=== PATIENT | male | born 1990 | race Caucasian/White ===

== ENCOUNTER 2019-05-17 12:35 | Observation (INO) | payer SELFPAY ==
--- NOTE | 2019-05-17 13:08 | ER Document Report ---
ED Medical Screen (RME) - General Stated Complaint: BLOOD SUGAR ISSUE Time Seen by Provider: 05/17/19 13:02 Primary Care Provider: BRENDA LANDRY MD [Primary Care Provider] - Follow up as needed Information source: Patient Notes: Patient presents with reported history of not feeling well. Patient also complains of skin infection to the left axillary area. Patient's mother checked his blood sugar as she is diabetic and found his sugar to be 596. Patient then drank a soda and his blood sugar was unable to be read at home. Patient without any previous history of diabetes. I have greeted and performed a rapid initial assessment of this patient. A comprehensive ED assessment and evaluation of the patient, analysis of test results and completion of the medical decision making process will be conducted by additional ED providers. - Related Data Allergies/Adverse Reactions: No Known Allergies Allergy (Verified 05/17/19 12:58) Physical Exam - Vital signs Vitals: Temp Pulse Resp BP Pulse Ox 98.5 F 117 H 16 176/99 H 96 05/17/19 12:39 05/17/19 12:39 05/17/19 12:39 05/17/19 12:39 05/17/19 12:39 - General Notes: Abscess to left axilla with large area of surrounding erythema Course - Vital Signs Vital signs: Temp Pulse Resp BP Pulse Ox 98.5 F 117 H 16 176/99 H 96 05/17/19 12:39 05/17/19 12:39 05/17/19 12:39 05/17/19 12:39 05/17/19 12:39 Doctor's Discharge - Discharge Referrals: BRENDA LANDRY MD [Primary Care Provider] - Follow up as needed
[2019-05-17] MEDS: NORMAL SALINE 1000 ML 1,000 ML IV ONE ×6 (13:10→19:10)
[2019-05-17 14:30] LABS: ABSOLUTE BASOPHILS # (AUTO) 0.1 10^3/uL (0.0-0.2); ABSOLUTE EOSINOPHILS # (AUTO) 0.1 10^3/uL (0.0-0.6); ABSOLUTE LYMPHOCYTES (AUTO) 1.9 10^3/uL (0.5-4.7); ABSOLUTE MONOCYTES (AUTO) 0.8 10^3/uL (0.1-1.4); ABSOLUTE NEUT (AUTO) 10.4 10^3/uL (1.7-8.2); BASOPHILS % (AUTO) 0.5 % (0-2); EOSINOPHILS % (AUTO) 0.8 % (0-6); HEMOGLOBIN 17.2 g/dL (13.5-17.0); LYMPHOCYTES % (AUTO) 14.6 % (13-45); MEAN CORPUSCULAR HEMOGLOBIN 32.1 pg (27.0-33.4); MEAN CORPUSCULAR HGB CONC 35.1 g/dL (32.0-36.0); MEAN CORPUSCULAR VOLUME 92 fl (80-97); MONOCYTES % (AUTO) 5.7 % (3-13); PLATELET COUNT 277 10^3/uL (150-450); RED BLOOD COUNT 5.35 10^6/uL (4.35-5.55); RED CELL DISTRIBUTION WIDTH 12.3 % (11.5-14.0); SEGMENTED NEUTROPHILS % (AUTO) 78.4 % (42-78); TOTAL CELLS COUNTED % (AUTO) 100 %; WHITE BLOOD COUNT 13.3 10^3/uL (4.0-10.5)
[2019-05-17 14:32] LABS: VENOUS BLOOD BASE EXCESS -2.3 mmol/L; VENOUS BLOOD HCO3 22.1 mmol/L (20-32); VENOUS BLOOD PCO2 37.5 mmHg (35-63); VENOUS BLOOD PH 7.39 (7.30-7.42)
[2019-05-17 14:46] LABS: ALBUMIN 4.4 g/dL (3.5-5.0); ALKALINE PHOSPHATASE 188 U/L (38-126); ANION GAP 16 (5-19); ASPARTATE AMINO TRANSFERASE 40 U/L (17-59); BILIRUBIN,DIRECT 0.4 mg/dL (0.0-0.4); BILIRUBIN,TOTAL 1.2 mg/dL (0.2-1.3); BLOOD UREA NITROGEN 7 mg/dL (7-20); CALCIUM 9.8 mg/dL (8.4-10.2); CARBON DIOXIDE 21 mmol/L (22-30); CHLORIDE 93 mmol/L (98-107); POTASSIUM 4.6 mmol/L (3.6-5.0); TOTAL PROTEIN 7.6 g/dL (6.3-8.2)
[2019-05-17 14:55] LABS: GLUCOSE 512 mg/dL (75-110)
[2019-05-17 16:09] LABS: APPEARANCE,URINE CLEAR; BILIRUBIN,URINE NEGATIVE (NEGATIVE); COLOR,URINE STRAW; GLUCOSE, URINE >=500 mg/dL (NEGATIVE); KETONES,URINE 20 mg/dL (NEGATIVE); LEUKOCYTE ESTERASE,URINE TRACE (NEGATIVE); NITRITE,URINE NEGATIVE (NEGATIVE); PROTEIN,URINE 30 mg/dL (NEGATIVE); URINE SPECIFIC GRAVITY 1.035; UROBILINOGEN,URINE NEGATIVE mg/dL (<2.0)
[2019-05-17] MEDS ORDERED: LIDOCAINE 1% INJ-PF (10 MG/ML) 30 ML SDV INJ ONE (16:37)
[2019-05-17] MEDS ORDERED: VANCOMYCIN HCL INJ 1000 MG VIAL IV ONE (16:37)
--- NOTE | 2019-05-17 16:42 | ER Document Report ---
ED General - General Chief Complaint: High Blood Sugar Stated Complaint: BLOOD SUGAR ISSUE Time Seen by Provider: 05/17/19 13:02 - HPI Notes: Patient is a 28-year-old male that presents to the emergency department for chief complaint of hyperglycemia and left side abscess. Patient states he noticed an area of redness on his left side that was painful about 3 days ago. He states today the area spontaneously drained. He had pr eviously tried to drain it without success at home. Patient denies associated fevers or chills. He states that because of this area of redness his mother who is a diabetic check his blood sugar and it was found to be greater than 500. Patient denies known history of diabetes. He does report polydipsia and polyuria recently. Patient consumes large amounts of soda and states he does not drink much water. He denies any abdominal pain nausea or vomiting. Past Medical History: Diabetes Past Surgical History: Negative Social History: Lives at home with mother. Denies drug alcohol and tobacco use Family History: Reviewed and noncontributory for presenting illness Allergies: Reviewed, see documented allergy list. REVIEW OF SYSTEMS: CONSTITUTIONAL : No fever No chills No diaphoresis No recent illness EENT: No vision changes No congestion No sore throat CARDIOVASCULAR: No chest pain No palpitations RESPIRATORY: No shortness of breath No cough No difficulty breathing GASTROINTESTINAL: No abdominal pain No nausea No vomiting No diarrhea GENITOURINARY: No dysuria Polyuria No hematuria No difficulty urinating MUSCULOSKELETAL: No back pain No leg pain No arm pain SKIN: rashes No lesions LYMPHATIC: No swollen, enlarged glands. NEUROLOGICAL: No lightheadedness No headache No weakness No paresthesias PSYCHIATRIC: No anxiety No depression PHYSICAL EXAMINATION: Vital signs reviewed, nursing noted reviewed. GENERAL: Well-appearing, obese and in no acute distress. HEAD: Atraumatic, normocephalic. EYES: Eyes appear normal, extraocular movements intact, sclera anicteric, conjunctiva are normal. ENT: nares patent, oropharynx clear without exudates. Dry mucous membranes. NECK: Normal range of motion, supple without lymphadenopathy LUNGS: Breath sounds clear to auscultation bilaterally and equal. No wheezes rales or rhonchi. HEART: Tachycardic rate and regular rhythm without murmurs ABDOMEN: Soft, nontender, normoactive bowel sounds. No rebound, guarding, or rigidity. No masses appreciated. EXTREMITIES: Nontender, good range of motion, no pitting or edema. NEUROLOGICAL: No focal neurological deficits. Moves all extremities spontaneously Motor and sensory grossly intact on exam. PSYCH: Normal mood, normal affect. SKIN: Warm, Dry, normal turgor, large area of erythema with induration and calor to left flank inferior to the axilla. Central area of fluctuance without spontaneous drainage. Tender to palpation. - Related Data Allergies/Adverse Reactions: No Known Allergies Allergy (Verified 05/17/19 12:58) Past Medical History - General Information source: Patient - Social History Smoking Status: Current Every Day Smoker Family History: Reviewed & Not Pertinent Patient has suicidal ideation: No Patient has homicidal ideation: No Physical Exam - Vital signs Vitals: Temp Pulse Resp BP Pulse Ox 98.5 F 117 H 16 176/99 H 96 05/17/19 12:39 05/17/19 12:39 05/17/19 12:39 05/17/19 12:39 05/17/19 12:39 Course - Re-evaluation Re-evalutation: 05/17/19 16:44 Vitals reviewed. Nursing notes reviewed. Patient has a large area of cellulitis on his left flank with central area of abscess that I will incise and drain in the emergency room. Patient was started on vancomycin for the cellulitis. He was tachycardic at presentation and has a leukocytosis of 13.3 and is therefore meeting sepsis criteria. Patient's blood pressure is stable. Blood cultures and lactic acid have been ordered. Patient's initial glucose was greater than 500 however he is not acidotic or in DKA. Patient ordered aggressive IV fluid hydration for his hyperglycemia. He will be admitted to the hospital for antibiotics and further management of his new onset diabetes. Patient's care discussed with Dr. Soto who has accepted admission. Laboratory 05/17/19 05/17/19 05/17/19 14:09 14:11 14:11 WBC 13.3 H RBC 5.35 Hgb 17.2 H Hct 49.0 MCV 92 MCH 32.1 MCHC 35.1 RDW 12.3 Plt Count 277 Lymph % (Auto) 14.6 [place] % (Auto) 5.7 Eos % (Auto) 0.8 Baso % (Auto) 0.5 Absolute Neuts (auto) 10.4 H Absolute Lymphs (auto) 1.9 Absolute Monos (auto) 0.8 Absolute Eos (auto) 0.1 Absolute Basos (auto) 0.1 Seg Neutrophils % 78.4 H VBG pH VBG pCO2 VBG HCO3 VBG Base Excess Sodium 130.2 L Potassium 4.6 Chloride 93 L Carbon Dioxide 21 L Anion Gap 16 BUN 7 Creatinine 0.50 L Est GFR ( Amer) > 60 Est GFR (MDRD) Non-Af > 60 Glucose 512 H* POC Glucose 509 H* Calcium 9.8 Total Bilirubin 1.2 Direct Bilirubin 0.4 Neonat Total Bilirubin Not Reportable Neonat Direct Bilirubin Not Reportable Neonat Indirect Bili Not Reportable AST 40 ALT 56 Alkaline Phosphatase 188 H Total Protein 7.6 Albumin 4.4 Urine Color Urine Appearance Urine pH Ur Specific [place] Urine Protein Urine Glucose (UA) Urine Ketones Urine Blood Urine Nitrite Urine Bilirubin Urine Urobilinogen Ur Leukocyte Esterase Urine WBC (Auto) Urine RBC (Auto) Urine Bacteria (Auto) Squamous Epi Cells Auto Urine Mucus (Auto) Urine Ascorbic Acid 05/17/19 05/17/19 14:11 14:11 WBC RBC Hgb Hct MCV MCH MCHC RDW Plt Count Lymph % (Auto) [place] % (Auto) Eos % (Auto) Baso % (Auto) Absolute Neuts (auto) Absolute Lymphs (auto) Absolute Monos (auto) Absolute Eos (auto) Absolute Basos (auto) Seg Neutrophils % VBG pH 7.39 VBG pCO2 37.5 VBG HCO3 22.1 VBG Base Excess -2.3 Sodium Potassium Chloride Carbon Dioxide Anion Gap BUN Creatinine Est GFR ( Amer) Est GFR (MDRD) Non-Af Glucose POC Glucose Calcium Total Bilirubin Direct Bilirubin Neonat Total Bilirubin Neonat Direct Bilirubin Neonat Indirect Bili AST ALT Alkaline Phosphatase Total Protein Albumin Urine Color STRAW Urine Appearance CLEAR Urine pH 6.0 Ur Specific [place] 1.035 Urine Protein 30 H Urine Glucose (UA) >=500 H Urine Ketones 20 H Urine Blood NEGATIVE Urine Nitrite NEGATIVE Urine Bilirubin NEGATIVE Urine Urobilinogen NEGATIVE Ur Leukocyte Esterase TRACE H Urine WBC (Auto) 6 Urine RBC (Auto) 4 Urine Bacteria (Auto) TRACE Squamous Epi Cells Auto 1 Urine Mucus (Auto) RARE Urine Ascorbic Acid NEGATIVE - Vital Signs Vital signs: Temp Pulse Resp BP Pulse Ox 98.5 F 117 H 16 176/99 H 96 05/17/19 12:39 05/17/19 12:39 05/17/19 12:39 05/17/19 12:39 05/17/19 12:39 - Laboratory Result Diagrams: 05/17/19 14:11 05/17/19 14:11 Laboratory results interpreted by me: 05/17/19 05/17/19 05/17/19 14:09 14:11 14:11 WBC 13.3 H Hgb 17.2 H Absolute Neuts (auto) 10.4 H Seg Neutrophils % 78.4 H Sodium 130.2 L Chloride 93 L Carbon Dioxide 21 L Creatinine 0.50 L Glucose 512 H* POC Glucose 509 H* Hemoglobin A1c % Alkaline Phosphatase 188 H Urine Protein Urine Glucose (UA) Urine Ketones Ur Leukocyte Esterase 05/17/19 05/17/19 14:11 14:11 WBC Hgb Absolute Neuts (auto) Seg Neutrophils % Sodium Chloride Carbon Dioxide Creatinine Glucose POC Glucose Hemoglobin A1c % > 14.0 H Alkaline Phosphatase Urine Protein 30 H Urine Glucose (UA) >=500 H Urine Ketones 20 H Ur Leukocyte Esterase TRACE H Procedures - Incision and Drainage Left flank Time completed: 17:47 Type: Simple Anesthetic type: 1% Lidocaine w/epi mL's of anesthetic: 5 Blade size: 11 I&D procedure: Betadine prep applied Incision Method: Incision made with needle Amount/type of drainage: Copious purulent and bloody discharge Notes: 05/17/19 17:48 Informed consent obtained verbally with patient prior to procedure. Area cleaned with Betadine swabs. Anesthetized with lidocaine with epinephrine. Single linear 1.5 cm incision made over the areas of fluctuance using 11 blade scalpel. Copious amounts of purulent and bloody discharge were expelled. Area was irrigated with 150 mL normal saline jet irrigation. Loculations were broken up using curvilinear clamp. Area left open with bulky gauze dressing. Patient tolerated well with no immediate complications. Discharge - Discharge Clinical Impression: Hyperglycemia, Hyponatremia, Cellulitis of left axilla, Abscess of left axilla Sepsis Qualifiers: Sepsis type: sepsis due to unspecified organism Sepsis acute organ dysfunction status: unspecified Qualified Code(s): A41.9 - Sepsis, unspecified organism Condition: Stable Disposition: ADMITTED INPATIENT Admitting Provider: Brittany (Hospitalist) Unit Admitted: Telemetry
[2019-05-17] MEDS ORDERED: HYDRALAZINE HCL INJ/PF 20 MG/1 ML SDV IV PRN (17:02)
[2019-05-17] MEDS ORDERED: DEXTROSE 40% GEL 15 GM TUBE PO PRN ×2 (17:03)
[2019-05-17] MEDS ORDERED: GLUCAGON,HUMAN RECOMB 1 MG INJ IM PRN (17:03)
[2019-05-17] MEDS ORDERED: DEXTROSE 50%-WATER 25 GM/50 ML DISP.SYRIN IV PRN ×2 (17:03)
[2019-05-17] MEDS ORDERED: KETOROLAC TROMETHAMINE INJ/PF 30 MG/1 ML SDV IV PRN (17:04)
[2019-05-17] MEDS ORDERED: ACETAMINOPHEN 325 MG TABLET PO PRN (17:04)
[2019-05-17] MEDS ORDERED: NORMAL SALINE 1000 ML 1,000 ML IV PRN (17:06)
--- NOTE | 2019-05-17 17:12 | PDOC H&P ---
History of Present Illness Patient complains of: swelling, left subaxillary area History of Present Illness: KATHERYN AQUINO is a 28 year old male with no significant past medical history or prior formal medical diagnosis who presents with tenderness and swelling on the left subaxillary area. Patient says that this started out as a pimple-like lesion in the left submaxillary area which progressively developed into a large erythematous and tender fluctuant mass. He says he did notice some purulent drainage from the ar ea. He denies fever or chills. His mom reports that he has noticed him being more thirsty and has been drinking more water in the past few weeks. She checked his sugar earlier today she is diabetic herself and his sugar was was over 500 mg/dl. Social History Smoking Status: Current Every Day Smoker Family History Parental Family History Reviewed: Yes - Patient mom has diabetes Children Family History Reviewed: No Sibling(s) Family History Reviewed.: No Medication/Allergy Allergies/Adverse Reactions: No Known Allergies Allergy (Verified 05/17/19 12:58) Review of Systems All systems: reviewed and no additional remarkable complaints except as stated - As mentioned in HPI Physical Exam Vital Signs: Temp Pulse Resp BP Pulse Ox 98.5 F 117 H 16 176/99 H 96 05/17/19 12:39 05/17/19 12:39 05/17/19 12:39 05/17/19 12:39 05/17/19 12:39 Intake & Output 05/16/19 05/17/19 05/18/19 06:59 06:59 06:59 Weight 312 lb 6.32 oz General appearance: PRESENT: no acute distress, morbidly obese Head exam: PRESENT: atraumatic, normocephalic Eye exam: PRESENT: conjunctiva pink, EOMI, PERRLA. ABSENT: scleral icterus Ear exam: PRESENT: normal external ear exam Mouth exam: PRESENT: moist, tongue midline Neck exam: ABSENT: carotid bruit, JVD, lymphadenopathy, thyromegaly Respiratory exam: PRESENT: clear to auscultation raz. ABSENT: rales, rhonchi, wheezes Cardiovascular exam: PRESENT: RRR. ABSENT: diastolic murmur, rubs, systolic murmur GI/Abdominal exam: PRESENT: normal bowel sounds, soft. ABSENT: distended, guarding, mass, organolmegaly, rebound, tenderness Rectal exam: PRESENT: deferred Extremities exam: PRESENT: full ROM. ABSENT: calf tenderness, clubbing, pedal edema Neurological exam: PRESENT: alert, awake, oriented to person, oriented to place, oriented to time, oriented to situation, CN II-XII grossly intact. ABSENT: motor sensory deficit Skin exam: PRESENT: other - Erythematous, tender and fluctuant mass in the left submaxillary area Results Laboratory Results: 05/17/19 14:11 05/17/19 14:11 05/17/19 05/17/19 05/17/19 14:11 14:11 14:11 WBC 13.3 H RBC 5.35 Hgb 17.2 H Hct 49.0 MCV 92 MCH 32.1 MCHC 35.1 RDW 12.3 Plt Count 277 Seg Neutrophils % 78.4 H VBG pH 7.39 VBG pCO2 37.5 VBG HCO3 22.1 VBG Base Excess -2.3 Sodium 130.2 L Potassium 4.6 Chloride 93 L Carbon Dioxide 21 L Anion Gap 16 BUN 7 Creatinine 0.50 L Est GFR ( Amer) > 60 Glucose 512 H* Calcium 9.8 Total Bilirubin 1.2 AST 40 Alkaline Phosphatase 188 H Total Protein 7.6 Albumin 4.4 Urine Color Urine Appearance Urine pH Ur Specific [place] Urine Protein Urine Glucose (UA) Urine Ketones Urine Blood Urine Nitrite Ur Leukocyte Esterase Urine WBC (Auto) Urine RBC (Auto) 05/17/19 14:11 WBC RBC Hgb Hct MCV MCH MCHC RDW Plt Count Seg Neutrophils % VBG pH VBG pCO2 VBG HCO3 VBG Base Excess Sodium Potassium Chloride Carbon Dioxide Anion Gap BUN Creatinine Est GFR ( Amer) Glucose Calcium Total Bilirubin AST Alkaline Phosphatase Total Protein Albumin Urine Color STRAW Urine Appearance CLEAR Urine pH 6.0 Ur Specific [place] 1.035 Urine Protein 30 H Urine Glucose (UA) >=500 H Urine Ketones 20 H Urine Blood NEGATIVE Urine Nitrite NEGATIVE Ur Leukocyte Esterase TRACE H Urine WBC (Auto) 6 Urine RBC (Auto) 4 Assessment and Plan - Diagnosis (1) Left subaxillary abscess Is this a current diagnosis for this admission?: Yes Plan: Patient is currently being prepped for incision and drainage in the ER. We will continue antibiotics with IV vancomycin. Also order for wound culture from the drainage. (2) Hyperglycemia Is this a current diagnosis for this admission?: Yes Plan: Possibly newly diagnosed diabetes mellitus. Will check an A1c. Will also send for VERNELL-65 and IA-2 antibodies. We will also start patient on sliding scale for now. (3) Morbid obesity Is this a current diagnosis for this admission?: Yes Plan: Counseled on weight loss. - Time Time Spent with patient: 25-34 minutes
--- NOTE | 2019-05-17 17:13 | ADVANCED CARE ---
- Diagnosis (1) Left subaxillary abscess Diagnosis Current: Yes (2) Hyperglycemia Diagnosis Current: Yes Resuscitation Status: Full Code Discussion: Patient says he is a full code and prefers to get chest compressions, defibrillation or mechanical ventilation if the need arises. He says his mother in the bedside is his surrogate medical decision maker.
[2019-05-17] MEDS ORDERED: VANCOMYCIN HCL 0 MG in DEXTROSE 5%-WATER 250 ML IV NR (17:15)
[2019-05-17] MEDS ORDERED: LOSARTAN POTASSIUM 50 MG TABLET PO ONE ×2 (18:30→23:45)
[2019-05-17] MEDS ORDERED: VANCOMYCIN HCL INJ 1000 MG VIAL IV PRN (21:52)
[2019-05-17] MEDS ORDERED: VANCOMYCIN HCL 2,000 MG in DEXTROSE 5%-WATER 500 ML IV ONE (22:00)
[2019-05-17] MEDS ORDERED: VANCOMYCIN HCL 2,000 MG in NORMAL SALINE 500 ML IV ONE (23:30)
[2019-05-17] MEDS: HEPARIN SOD (PORCINE) 5,000 UNIT/ML 1 ML VIAL SUBCUT SCH (23:38)
[2019-05-17] MEDS: INSULIN LISPRO 100 UNIT/ML 3 ML VIAL SUBCUT SCH (23:40)
[2019-05-18] MEDS: HEPARIN SOD (PORCINE) 5,000 UNIT/ML 1 ML VIAL SUBCUT SCH ×3 (05:53→21:38)
[2019-05-18] MEDS: INSULIN LISPRO 100 UNIT/ML 3 ML VIAL SUBCUT SCH ×5 (05:54→21:39)
[2019-05-18 08:25] LABS: ABSOLUTE BASOPHILS # (AUTO) 0.1 10^3/uL (0.0-0.2); ABSOLUTE EOSINOPHILS # (AUTO) 0.2 10^3/uL (0.0-0.6); ABSOLUTE LYMPHOCYTES (AUTO) 2.2 10^3/uL (0.5-4.7); ABSOLUTE MONOCYTES (AUTO) 0.7 10^3/uL (0.1-1.4); ABSOLUTE NEUT (AUTO) 7.9 10^3/uL (1.7-8.2); BASOPHILS % (AUTO) 0.8 % (0-2); EOSINOPHILS % (AUTO) 1.9 % (0-6); HEMATOCRIT 42.9 % (37.9-51.0); LYMPHOCYTES % (AUTO) 19.6 % (13-45); MEAN CORPUSCULAR HGB CONC 34.9 g/dL (32.0-36.0); MEAN CORPUSCULAR VOLUME 92 fl (80-97); MONOCYTES % (AUTO) 6.3 % (3-13); PLATELET COUNT 258 10^3/uL (150-450); RED BLOOD COUNT 4.67 10^6/uL (4.35-5.55); RED CELL DISTRIBUTION WIDTH 12.4 % (11.5-14.0); SEGMENTED NEUTROPHILS % (AUTO) 71.4 % (42-78); TOTAL CELLS COUNTED % (AUTO) 100 %; WHITE BLOOD COUNT 11.1 10^3/uL (4.0-10.5)
[2019-05-18 08:32] LABS: HEMOGLOBIN 14.9 g/dL (13.5-17.0)
[2019-05-18 08:45] LABS: ALBUMIN 3.5 g/dL (3.5-5.0); ALKALINE PHOSPHATASE 114 U/L (38-126); ANION GAP 11 (5-19); ASPARTATE AMINO TRANSFERASE 30 U/L (17-59); BILIRUBIN,DIRECT 0.2 mg/dL (0.0-0.4); BLOOD UREA NITROGEN 7 mg/dL (7-20); CALCIUM 8.5 mg/dL (8.4-10.2); CARBON DIOXIDE 21 mmol/L (22-30); CHLORIDE 102 mmol/L (98-107); GLUCOSE 284 mg/dL (75-110); POTASSIUM 4.3 mmol/L (3.6-5.0); TOTAL PROTEIN 6.3 g/dL (6.3-8.2)
[2019-05-18] MEDS ORDERED: VANCOMYCIN HCL 1,500 MG in DEXTROSE 5%-WATER 250 ML IV SCH (09:00)
[2019-05-18] MEDS: VANCOMYCIN HCL 1,500 MG in DEXTROSE 5%-WATER 250 ML IV SCH ×3 (09:27→21:37)
[2019-05-18] MEDS: METFORMIN HCL 500 MG TABLET PO SCH ×2 (09:39→17:33)
[2019-05-18] MEDS: LOSARTAN POTASSIUM 50 MG TABLET PO SCH (09:39)
[2019-05-18] MEDS: HUM INSULIN NPH/REG INSULIN HM 100 UNIT/1 ML 3 ML SUBCUT SCH ×2 (09:40→17:34)
--- NOTE | 2019-05-18 10:37 | PDOC PROGRESS REPORT ---
Subjective Progress Note for:: 05/18/19 Subjective:: This is a 28 year old male with no significant past medical history or prior formal medical diagnosis who presents with tenderness and swelling on the left subaxillary area. He was admitted for a left sub-axillary abscess and a new diagnosis of diabetes mellitus. He underwent I&D of his left subaxillary abscess in the ER. No acute event overnight. Upon encounter, he feels significant relief on the tenderness and pain in the left subaxillary area. Erythema has significantly improved. Wound cultures pending. Reason For Visit: LEFT SUBAXILLARY ABSCESS Physical Exam Vital Signs: Temp Pulse Resp BP Pulse Ox 98.6 F 81 18 136/72 H 96 05/18/19 07:35 05/18/19 07:40 05/18/19 07:35 05/18/19 07:35 05/18/19 07:35 Intake & Output 05/17/19 05/18/19 05/19/19 06:59 06:59 06:59 Intake Total 3210 500 Balance 3210 500 Weight 315 lb 0.649 oz General appearance: PRESENT: no acute distress, morbidly obese Head exam: PRESENT: atraumatic, normocephalic Eye exam: PRESENT: conjunctiva pink, EOMI, PERRLA. ABSENT: scleral icterus Ear exam: PRESENT: normal external ear exam Mouth exam: PRESENT: moist, tongue midline Neck exam: ABSENT: carotid bruit, JVD, lymphadenopathy, thyromegaly Respiratory exam: PRESENT: clear to auscultation raz. ABSENT: rales, rhonchi, wheezes Cardiovascular exam: PRESENT: RRR. ABSENT: diastolic murmur, rubs, systolic murmur Pulses: PRESENT: normal dorsalis pedis pul GI/Abdominal exam: PRESENT: normal bowel sounds, soft. ABSENT: distended, guarding, mass, organolmegaly, rebound, tenderness Rectal exam: PRESENT: deferred Neurological exam: PRESENT: alert, awake, oriented to person, oriented to place, oriented to time, oriented to situation, CN II-XII grossly intact. ABSENT: motor sensory deficit Results Laboratory Results: 05/18/19 08:10 05/18/19 08:10 05/17/19 05/17/19 05/17/19 14:11 14:11 14:11 WBC 13.3 H RBC 5.35 Hgb 17.2 H Hct 49.0 MCV 92 MCH 32.1 MCHC 35.1 RDW 12.3 Plt Count 277 Seg Neutrophils % 78.4 H VBG pH 7.39 VBG pCO2 37.5 VBG HCO3 22.1 VBG Base Excess -2.3 Sodium 130.2 L Potassium 4.6 Chloride 93 L Carbon Dioxide 21 L Anion Gap 16 BUN 7 Creatinine 0.50 L Est GFR ( Amer) > 60 Glucose 512 H* Lactic Acid Calcium 9.8 Total Bilirubin 1.2 AST 40 Alkaline Phosphatase 188 H Total Protein 7.6 Albumin 4.4 Urine Color Urine Appearance Urine pH Ur Specific [place] Urine Protein Urine Glucose (UA) Urine Ketones Urine Blood Urine Nitrite Ur Leukocyte Esterase Urine WBC (Auto) Urine RBC (Auto) 05/17/19 05/17/19 05/18/19 14:11 20:00 08:10 WBC 11.1 H RBC 4.67 Hgb 14.9 D Hct 42.9 MCV 92 MCH 32.0 MCHC 34.9 RDW 12.4 Plt Count 258 Seg Neutrophils % 71.4 VBG pH VBG pCO2 VBG HCO3 VBG Base Excess Sodium Potassium Chloride Carbon Dioxide Anion Gap BUN Creatinine Est GFR ( Amer) Glucose Lactic Acid 1.2 Calcium Total Bilirubin AST Alkaline Phosphatase Total Protein Albumin Urine Color STRAW Urine Appearance CLEAR Urine pH 6.0 Ur Specific [place] 1.035 Urine Protein 30 H Urine Glucose (UA) >=500 H Urine Ketones 20 H Urine Blood NEGATIVE Urine Nitrite NEGATIVE Ur Leukocyte Esterase TRACE H Urine WBC (Auto) 6 Urine RBC (Auto) 4 05/18/19 08:10 WBC RBC Hgb Hct MCV MCH MCHC RDW Plt Count Seg Neutrophils % VBG pH VBG pCO2 VBG HCO3 VBG Base Excess Sodium 134.2 L Potassium 4.3 Chloride 102 Carbon Dioxide 21 L Anion Gap 11 BUN 7 Creatinine 0.42 L Est GFR ( Amer) > 60 Glucose 284 H Lactic Acid Calcium 8.5 Total Bilirubin 1.0 AST 30 Alkaline Phosphatase 114 Total Protein 6.3 Albumin 3.5 Urine Color Urine Appearance Urine pH Ur Specific [place] Urine Protein Urine Glucose (UA) Urine Ketones Urine Blood Urine Nitrite Ur Leukocyte Esterase Urine WBC (Auto) Urine RBC (Auto) Assessment and Plan - Diagnosis (1) Left subaxillary abscess Is this a current diagnosis for this admission?: Yes Plan: S/P I&D in the ER. Wound cultures pending. Continue vancomycin. (2) Hyperglycemia Is this a current diagnosis for this admission?: Yes Plan: A1c >14. Will start patient on insulin 70/30 and metformin. VERNELL-65 and [place]-2 antibodies also sent. (3) Morbid obesity Is this a current diagnosis for this admission?: Yes Plan: BMI 50.5. Counseled in length on weight loss and its importance in the setting of diabetes. Dietitian consulted.
[2019-05-19 03:58] LABS: VANCOMYCIN,TROUGH 14.7 ug/mL (5.0-20.0)
[2019-05-19] MEDS: VANCOMYCIN HCL 1,500 MG in DEXTROSE 5%-WATER 250 ML IV SCH ×4 (04:48→21:57)
[2019-05-19] MEDS: HEPARIN SOD (PORCINE) 5,000 UNIT/ML 1 ML VIAL SUBCUT SCH ×3 (05:21→22:02)
[2019-05-19] MEDS ORDERED: HUM INSULIN NPH/REG INSULIN HM 100 UNIT/1 ML 3 ML SUBCUT SCH (08:00)
[2019-05-19 09:01] LABS: ABSOLUTE EOSINOPHILS # (AUTO) 0.3 10^3/uL (0.0-0.6); ABSOLUTE LYMPHOCYTES (AUTO) 2.9 10^3/uL (0.5-4.7); ABSOLUTE MONOCYTES (AUTO) 0.6 10^3/uL (0.1-1.4); ABSOLUTE NEUT (AUTO) 7.4 10^3/uL (1.7-8.2); BASOPHILS % (AUTO) 0.2 % (0-2); EOSINOPHILS % (AUTO) 2.6 % (0-6); HEMATOCRIT 43.6 % (37.9-51.0); LYMPHOCYTES % (AUTO) 26.2 % (13-45); MEAN CORPUSCULAR HEMOGLOBIN 32.1 pg (27.0-33.4); MEAN CORPUSCULAR HGB CONC 34.5 g/dL (32.0-36.0); MEAN CORPUSCULAR VOLUME 93 fl (80-97); MONOCYTES % (AUTO) 5.7 % (3-13); PLATELET COUNT 257 10^3/uL (150-450); RED BLOOD COUNT 4.69 10^6/uL (4.35-5.55); RED CELL DISTRIBUTION WIDTH 12.2 % (11.5-14.0); SEGMENTED NEUTROPHILS % (AUTO) 65.3 % (42-78); TOTAL CELLS COUNTED % (AUTO) 100 %; WHITE BLOOD COUNT 11.3 10^3/uL (4.0-10.5)
[2019-05-19] MEDS: LOSARTAN POTASSIUM 50 MG TABLET PO SCH (09:15)
[2019-05-19] MEDS: INSULIN LISPRO 100 UNIT/ML 3 ML VIAL SUBCUT SCH ×4 (09:15→21:58)
[2019-05-19 09:17] LABS: ALBUMIN 3.3 g/dL (3.5-5.0); ALKALINE PHOSPHATASE 113 U/L (38-126); ANION GAP 10 (5-19); ASPARTATE AMINO TRANSFERASE 37 U/L (17-59); BILIRUBIN,DIRECT 0.3 mg/dL (0.0-0.4); BILIRUBIN,TOTAL 0.6 mg/dL (0.2-1.3); BLOOD UREA NITROGEN 7 mg/dL (7-20); CALCIUM 8.6 mg/dL (8.4-10.2); CARBON DIOXIDE 22 mmol/L (22-30); CHLORIDE 100 mmol/L (98-107); GLUCOSE 274 mg/dL (75-110); POTASSIUM 3.9 mmol/L (3.6-5.0); TOTAL PROTEIN 6.1 g/dL (6.3-8.2)
[2019-05-19] MEDS: HUM INSULIN NPH/REG INSULIN HM 100 UNIT/1 ML 3 ML SUBCUT SCH ×2 (13:01→17:07)
[2019-05-19] MEDS: NICOTINE 21 MG/24 HR PATCH.TD24 TD SCH (13:02)
[2019-05-20] MEDS: VANCOMYCIN HCL 1,500 MG in DEXTROSE 5%-WATER 250 ML IV SCH ×3 (03:31→17:47)
[2019-05-20] MEDS: HEPARIN SOD (PORCINE) 5,000 UNIT/ML 1 ML VIAL SUBCUT SCH ×3 (05:14→21:39)
[2019-05-20 06:43] LABS: ABSOLUTE BASOPHILS # (AUTO) 0.1 10^3/uL (0.0-0.2); ABSOLUTE EOSINOPHILS # (AUTO) 0.2 10^3/uL (0.0-0.6); ABSOLUTE LYMPHOCYTES (AUTO) 2.1 10^3/uL (0.5-4.7); ABSOLUTE MONOCYTES (AUTO) 0.6 10^3/uL (0.1-1.4); EOSINOPHILS % (AUTO) 2.2 % (0-6); HEMATOCRIT 43.9 % (37.9-51.0); HEMOGLOBIN 15.3 g/dL (13.5-17.0); LYMPHOCYTES % (AUTO) 20.9 % (13-45); MEAN CORPUSCULAR HGB CONC 34.9 g/dL (32.0-36.0); MEAN CORPUSCULAR VOLUME 92 fl (80-97); MONOCYTES % (AUTO) 5.7 % (3-13); PLATELET COUNT 252 10^3/uL (150-450); RED BLOOD COUNT 4.79 10^6/uL (4.35-5.55); RED CELL DISTRIBUTION WIDTH 12.4 % (11.5-14.0); SEGMENTED NEUTROPHILS % (AUTO) 70.2 % (42-78); TOTAL CELLS COUNTED % (AUTO) 100 %
[2019-05-20 07:08] LABS: ALBUMIN 3.4 g/dL (3.5-5.0); ALKALINE PHOSPHATASE 104 U/L (38-126); ANION GAP 11 (5-19); ASPARTATE AMINO TRANSFERASE 64 U/L (17-59); BILIRUBIN,DIRECT 0.3 mg/dL (0.0-0.4); BILIRUBIN,TOTAL 0.7 mg/dL (0.2-1.3); BLOOD UREA NITROGEN 6 mg/dL (7-20); CALCIUM 8.9 mg/dL (8.4-10.2); CARBON DIOXIDE 22 mmol/L (22-30); CHLORIDE 102 mmol/L (98-107); GLUCOSE 234 mg/dL (75-110); TOTAL PROTEIN 6.1 g/dL (6.3-8.2)
[2019-05-20] MEDS ORDERED: INFLUENZA QUAD (6MOS+) 2019-20 VAC 0.5 ML SYR IM ONE (08:00)
[2019-05-20] MEDS: LOSARTAN POTASSIUM 50 MG TABLET PO SCH (09:05)
[2019-05-20] MEDS: INSULIN LISPRO 100 UNIT/ML 3 ML VIAL SUBCUT SCH ×4 (09:05→21:39)
[2019-05-20] MEDS: HUM INSULIN NPH/REG INSULIN HM 100 UNIT/1 ML 3 ML SUBCUT SCH ×2 (09:06→17:48)
[2019-05-20] MEDS: NICOTINE 21 MG/24 HR PATCH.TD24 TD SCH (09:09)
--- NOTE | 2019-05-20 10:53 | PDOC PROGRESS REPORT ---
Subjective Progress Note for:: 05/20/19 Subjective:: 28 year old male with no significant past medical history or prior formal medical diagnosis who presents with tenderness and swelling on the left subaxillary area. He was admitted for a left sub-axillary abscess and a new diagnosis of diabetes mellitus. He underwent I&D of his left subaxillary abscess in the ER. No acute event overnight. Upon encounter, he feels significant relief on the tenderness and pain in the left subaxillary area. Erythema has significantly improved. Wound cultures pending. 05/[id number]-ueut-old male morbidly obese admitted with left subaxillary abscess. Status post incision drainage was done. He has one on the right side of the axilla. Which was drained in the ER. Wound cultures coming back positive for gram-positive cocci. Present on IV vancomycin. Hemoglobin A1c is more than 14. 05/[id number]-vvff-old male morbidly obese admitted with supple axillary abscesses going to change the dressing today status post IND of the left cerebral axillary abscess was done. Cultures are growing gram-positive cocci. Waiting for the reports. Patient wants to take a shower and while so requesting to take of the telemetry. He agreed to stay another day for continuation of the antibiotics. Reason For Visit: LEFT SUBAXILLARY ABSCESS Physical Exam Vital Signs: Temp Pulse Resp BP Pulse Ox 97.9 F 77 18 139/72 H 96 05/20/19 08:34 05/20/19 08:34 05/20/19 08:34 05/20/19 08:34 05/20/19 08:34 Intake & Output 05/19/19 05/20/19 05/21/19 06:59 06:59 06:59 Intake Total 2350 2950 Balance 2350 2950 Weight 146.5 kg 146.7 kg General appearance: PRESENT: no acute distress, morbidly obese Head exam: PRESENT: atraumatic Eye exam: PRESENT: PERRLA Mouth exam: PRESENT: moist, tongue midline Teeth exam: PRESENT: poor dentation Neck exam: ABSENT: carotid bruit, JVD, lymphadenopathy, thyromegaly Respiratory exam: PRESENT: decreased breath sounds Cardiovascular exam: PRESENT: RRR. ABSENT: diastolic murmur, rubs, systolic murmur GI/Abdominal exam: PRESENT: normal bowel sounds, soft. ABSENT: distended, guarding, mass, organolmegaly, rebound, tenderness Rectal exam: PRESENT: deferred Extremities exam: PRESENT: full ROM. ABSENT: calf tenderness, clubbing, pedal edema Neurological exam: PRESENT: alert, awake, oriented to person, oriented to place, oriented to time, oriented to situation, CN II-XII grossly intact. ABSENT: motor sensory deficit Psychiatric exam: PRESENT: appropriate affect, normal mood. ABSENT: homicidal ideation, suicidal ideation Skin exam: PRESENT: other - Patient has wounds on both sides of the chest with the dressings. Results Laboratory Results: 05/20/19 06:09 05/20/19 06:09 05/20/19 05/20/19 06:09 06:09 WBC 10.0 RBC 4.79 Hgb 15.3 Hct 43.9 MCV 92 MCH 32.0 MCHC 34.9 RDW 12.4 Plt Count 252 Seg Neutrophils % 70.2 Sodium 134.9 L Potassium 4.0 Chloride 102 Carbon Dioxide 22 Anion Gap 11 BUN 6 L Creatinine 0.47 L Est GFR ( Amer) > 60 Glucose 234 H Calcium 8.9 Magnesium 1.8 Total Bilirubin 0.7 AST 64 H Alkaline Phosphatase 104 Total Protein 6.1 L Albumin 3.4 L Assessment and Plan - Diagnosis (1) Left subaxillary abscess Is this a current diagnosis for this admission?: Yes (2) Hyperglycemia Is this a current diagnosis for this admission?: Yes (3) Morbid obesity Is this a current diagnosis for this admission?: Yes (4) Tobacco abuse Is this a current diagnosis for this admission?: Yes (5) Hyponatremia Is this a current diagnosis for this admission?: Yes - Plan Summary Summary: (1) Left subaxillary abscess Is this a current diagnosis for this admission?: Yes Plan: S/P I&D in the ER. Wound cultures pending. Continue vancomycin. 05/[id number]-xoom-old male morbidly obese admitted with axillary abscesses in larissa th sides I&D of the left axilla and right axilla were done cultures are positive for gram-positive cocci present and IV vancomycin waiting for the sensitivity reports. Patient is expressing desire to go home but explained to him he may have to stay at least another day for further management. He agreed to stay. 05/[id number]-amny-old male morbidly obese, newly diagnosed diabetes mellitus admitted with skin abscesses. Status post incision and drainage. Cultures positive for gram-positive cocci present. Patient is presently on IV vancomycin. Waiting for the sensitivity report. (2) Hyperglycemia Is this a current diagnosis for this admission?: Yes Plan: A1c >14. Will start patient on insulin 70/30 and metformin. VERNELL-65 and IA-2 antibodies also sent. 05/19/2019-patient's hemoglobin is he is a 14. Presently on insulin 70/30 and metformin. Newly diagnosed diabetes mellitus. Latest blood sugar is 292. Dietary consult will be requested. Insulin doses will be adjusted. 09/2018-hemoglobin A1c is more than 14 presently on insulin 70/30 and also metformin. Latest blood sugar is 234 this morning. Presently on 7030 25 units twice a day. And also insulin sliding scale. To continue metformin thousand milligrams p.o. twice daily. He was also started on losartan 50 mg p.o. daily. To start him on atorvastatin 20 mg at bedtime. (3) Morbid obesity Is this a current diagnosis for this admission?: Yes Plan: BMI 50.5. Counseled in length on weight loss and its importance in the setting of diabetes. Dietitian consulted. 05/19/2019-patient BMI is more than 52 diet exercise weight loss lifestyle modifications are discussed with the patient. Dietary consult will be requested. (4) Tobacco abuse Is this a current diagnosis for this admission?: Yes Plan: 05/19/2019-patient is a chronic daily smoker wants to go out and smoke but explained to him this is a smoke-free facility and offered him nicotine patches he reluctantly agreed to use the patches. (5) Hyponatremia Is this a current diagnosis for this admission?: Yes Plan: 05/19/2019-serum sodium is 132 and blood sugars are at 295. Corrected sodium s odium probably around 135. Fluids will be discontinued from today. 05/20/2019-serum sodium today is 135 with blood sugars of 234. Hyponatremia is corrected.
[2019-05-20] MEDS: METFORMIN HCL 500 MG TABLET PO SCH (17:47)
[2019-05-20 19:14] LABS: GLUTAMIC ACID DECARBOXYL-65 AB <5.0 U/mL (0.0-5.0)
[2019-05-21] MEDS: VANCOMYCIN HCL 1,500 MG in DEXTROSE 5%-WATER 250 ML IV SCH ×2 (01:00→08:06)
[2019-05-21] MEDS: HEPARIN SOD (PORCINE) 5,000 UNIT/ML 1 ML VIAL SUBCUT SCH (05:59)
[2019-05-21 06:21] LABS: ABSOLUTE BASOPHILS # (AUTO) 0.1 10^3/uL (0.0-0.2); ABSOLUTE EOSINOPHILS # (AUTO) 0.2 10^3/uL (0.0-0.6); ABSOLUTE LYMPHOCYTES (AUTO) 1.9 10^3/uL (0.5-4.7); ABSOLUTE MONOCYTES (AUTO) 0.6 10^3/uL (0.1-1.4); ABSOLUTE NEUT (AUTO) 7.4 10^3/uL (1.7-8.2); BASOPHILS % (AUTO) 0.7 % (0-2); EOSINOPHILS % (AUTO) 1.9 % (0-6); HEMATOCRIT 42.8 % (37.9-51.0); HEMOGLOBIN 15.1 g/dL (13.5-17.0); LYMPHOCYTES % (AUTO) 18.6 % (13-45); MEAN CORPUSCULAR HEMOGLOBIN 32.3 pg (27.0-33.4); MEAN CORPUSCULAR HGB CONC 35.2 g/dL (32.0-36.0); MEAN CORPUSCULAR VOLUME 92 fl (80-97); MONOCYTES % (AUTO) 6.1 % (3-13); PLATELET COUNT 278 10^3/uL (150-450); RED BLOOD COUNT 4.66 10^6/uL (4.35-5.55); RED CELL DISTRIBUTION WIDTH 12.2 % (11.5-14.0); SEGMENTED NEUTROPHILS % (AUTO) 72.7 % (42-78); TOTAL CELLS COUNTED % (AUTO) 100 %; WHITE BLOOD COUNT 10.2 10^3/uL (4.0-10.5)
[2019-05-21 06:42] LABS: ALBUMIN 3.3 g/dL (3.5-5.0); ALKALINE PHOSPHATASE 97 U/L (38-126); ANION GAP 11 (5-19); ASPARTATE AMINO TRANSFERASE 57 U/L (17-59); BILIRUBIN,DIRECT 0.2 mg/dL (0.0-0.4); BILIRUBIN,TOTAL 0.7 mg/dL (0.2-1.3); BLOOD UREA NITROGEN 6 mg/dL (7-20); CARBON DIOXIDE 24 mmol/L (22-30); CHLORIDE 102 mmol/L (98-107); GLUCOSE 187 mg/dL (75-110); POTASSIUM 3.9 mmol/L (3.6-5.0)
[2019-05-21] MEDS: METFORMIN HCL 500 MG TABLET PO SCH (09:36)
[2019-05-21] MEDS: LOSARTAN POTASSIUM 50 MG TABLET PO SCH (09:36)
[2019-05-21] MEDS: INSULIN LISPRO 100 UNIT/ML 3 ML VIAL SUBCUT SCH ×2 (09:37→12:36)
[2019-05-21] MEDS: HUM INSULIN NPH/REG INSULIN HM 100 UNIT/1 ML 3 ML SUBCUT SCH (09:37)
[2019-05-21] MEDS: NICOTINE 21 MG/24 HR PATCH.TD24 TD SCH (10:04)
--- NOTE | 2019-05-21 11:26 | PDOC DISCHARGE SUMMARY ---
Impression - Admit/DC Date/PCP Admission Date/Primary Care Provider: 05/17/19 17:06 Discharge Date: 05/21/19 - Discharge Diagnosis (1) Left subaxillary abscess Is this a current diagnosis for this admission?: Yes (2) Hyperglycemia Is this a current diagnosis for this admission?: Yes (3) Morbid obesity Is this a current diagnosis for this admission?: Yes (4) Tobacco abuse Is this a current diagnosis for this admission?: Yes (5) Hyponatremia Is this a current diagnosis for this admission?: Yes - Assessment Summary: (1) Left subaxillary abscess Is this a current diagnosis for this admission?: Yes Plan: S/P I&D in the ER. Wound cultures pending. Continue vancomycin. 05/19/[id number]-zkrs-old male morbidly obese admitted with axillary abscesses in both sides I&D of the left axilla and right axilla were done cultures are positive for gram-positive cocci present and IV vancomycin waiting for the sensitivity reports. Patient is expressing desire to go home but explained to him he may have to stay at least another day for further management. He agreed to stay. 05/20/[id number]-cezb-old male morbidly obese, newly diagnosed diabetes mellitus admitted with skin abscesses. Status post incision and drainage. Cultures positive for gram-positive cocci present. Patient is presently on IV vancomycin. Waiting for the sensitivity report. 05/21/2019-wound cultures came back positive for flu coccus hominis. Sensitivity to levofloxacin. Patient will be discharged on levo floxacillin 400 mg p.o. daily for 10 days. (2) Hyperglycemia Is this a current diagnosis for this admission?: Yes Plan: A1c >14. Will start patient on insulin 70/30 and metformin. VERNELL-65 and IA-2 antibodies also sent. 05/19/2019-patient's hemoglobin is he is a 14. Presently on insulin 70/30 and metformin. Newly diagnosed diabetes mellitus. Latest blood sugar is 292. Dietary consult will be requested. Insulin doses will be adjusted. 09/2018-hemoglobin A1c is more than 14 presently on insulin 70/30 and also metformin. Latest blood sugar is 234 this morning. Presently on 7030 25 units twice a day. And also insulin sliding scale. To continue metformin thousand milligrams p.o. twice daily. He was also started on losartan 50 mg p.o. daily. To start him on atorvastatin 20 mg at bedtime. 05/21/2019-patient was started on metformin thousand milligrams p.o. twice daily and Glucotrol 10 mg p.o. daily. Prescription was given for NPH sliding scale to use at home. Patient was strongly advised to follow-up with primary care physician in 3 to 5 days. Diet exercise weight loss lifestyle modifications discussed with the patient. (3) Morbid obesity Is this a current diagnosis for this admission?: Yes Plan: BMI 50.5. Counseled in length on weight loss and its importance in the setting of diabetes. Dietitian consulted. 05/19/2019-patient BMI is more than 52 diet exercise weight loss lifestyle modifications are discussed with the patient. Dietary consult will be requested. (4) Tobacco abuse Is this a current diagnosis for this admission?: Yes Plan: 05/19/2019-patient is a chronic daily smoker wants to go out and smoke but explained to him this is a smoke-free facility and offered him nicotine patches he reluctantly agreed to use the patches. (5) Hyponatremia Is this a current diagnosis for this admission?: Yes Plan: 05/19/2019-serum sodium is 132 and blood sugars are at 295. Corrected sodium sodium probably around 135. Fluids will be discontinued from today. 05/20/2019-serum sodium today is 135 with blood sugars of 234. Hyponatremia is corrected. 05/21/2019-serum sodium level today is 136.6 hyponatremia most likely secondary to uncontrolled diabetes mellitus resolved. - Additional Information Resuscitation Status: Full Code Discharge Diet: Diabetic Discharge Activity: Activity As Tolerated Referrals: [facility] [Outside] - 05/27/19 3:00 pm (Appointment with Dr Carl. Please bring all discharge paperwork, medications, and ID to this appointment. [address]) Prescriptions: Losartan Potassium [Cozaar 50 mg Tablet] 50 mg PO DAILY 30 Days #30 tablet Metformin HCl [Glucophage 500 mg Tablet] 1,000 mg PO BIDACBS #60 tablet Glipizide [Glucotrol 10 mg Tablet] 5 mg PO BID #60 tablet Insulin Lispro [Humalog Insulin (Lispro) 100 unit/mL] 0 - 12 unit SUBCUT ACHS #3 vial Levofloxacin [Levaquin 500 mg Tablet] 500 mg PO DAILY #10 tablet Home Medications: Glipizide [Glucotrol 10 mg Tablet] 5 mg PO BID #60 tablet 05/21/19 Insulin Lispro [Humalog Insulin (Lispro) 100 unit/mL] 0 - 12 unit SUBCUT ACHS #3 vial 05/21/19 Levofloxacin [Levaquin 500 mg Tablet] 500 mg PO DAILY #10 tablet 05/21/19 Losartan Potassium [Cozaar 50 mg Tablet] 50 mg PO DAILY 30 Days #30 tablet 05/21/19 Metformin HCl [Glucophage 500 mg Tablet] 1,000 mg PO BIDACBS #60 tablet 05/21/19 History of Present Illiness History of Present Illness: KATHERYN AQUINO is a 28 year old male Physical Exam Vital Signs: Temp Pulse Resp BP Pulse Ox 97.9 F 80 20 152/70 H 96 05/21/19 08:00 05/21/19 08:00 05/21/19 08:00 05/21/19 08:00 05/21/19 08:00 Intake & Output 05/20/19 05/21/19 05/22/19 06:59 06:59 06:59 Intake Total 2950 2455 Balance 2950 2455 Weight 146.7 kg 144.1 kg Results Laboratory Results: WBC 10.2 10^3/uL (4.0-10.5) 05/21/19 05:24 RBC 4.66 10^6/uL (4.35-5.55) 05/21/19 05:24 Hgb 15.1 g/dL (13.5-17.0) 05/21/19 05:24 Hct 42.8 % (37.9-51.0) 05/21/19 05:24 MCV 92 fl (80-97) 05/21/19 05:24 MCH 32.3 pg (27.0-33.4) 05/21/19 05:24 MCHC 35.2 g/dL (32.0-36.0) 05/21/19 05:24 RDW 12.2 % (11.5-14.0) 05/21/19 05:24 Plt Count 278 10^3/uL (150-450) 05/21/19 05:24 Lymph % (Auto) 18.6 % (13-45) 05/21/19 05:24 [place] % (Auto) 6.1 % (3-13) 05/21/19 05:24 Eos % (Auto) 1.9 % (0-6) 05/21/19 05:24 Baso % (Auto) 0.7 % (0-2) 05/21/19 05:24 Absolute Neuts (auto) 7.4 10^3/uL (1.7-8.2) 05/21/19 05:24 Absolute Lymphs (auto) 1.9 10^3/uL (0.5-4.7) 05/21/19 05:24 Absolute Monos (auto) 0.6 10^3/uL (0.1-1.4) 05/21/19 05:24 Absolute Eos (auto) 0.2 10^3/uL (0.0-0.6) 05/21/19 05:24 Absolute Basos (auto) 0.1 10^3/uL (0.0-0.2) 05/21/19 05:24 Seg Neutrophils % 72.7 % (42-78) 05/21/19 05:24 VBG pH 7.39 (7.30-7.42) 05/17/19 14:11 VBG pCO2 37.5 mmHg (35-63) 05/17/19 14:11 VBG HCO3 22.1 mmol/L (20-32) 05/17/19 14:11 VBG Base Excess -2.3 mmol/L 05/17/19 14:11 Sodium 136.6 mmol/L (137-145) L 05/21/19 05:24 Potassium 3.9 mmol/L (3.6-5.0) 05/21/19 05:24 Chloride 102 mmol/L (98-107) 05/21/19 05:24 Carbon Dioxide 24 mmol/L (22-30) 05/21/19 05:24 Anion Gap 11 (5-19) 05/21/19 05:24 BUN 6 mg/dL (7-20) L 05/21/19 05:24 Creatinine 0.51 mg/dL (0.52-1.25) L 05/21/19 05:24 Est GFR ( Amer) > 60 (>60) 05/21/19 05:24 Est GFR (MDRD) Non-Af > 60 (>60) 05/21/19 05:24 Glucose 187 mg/dL (75-110) H 05/21/19 05:24 POC Glucose 205 mg/dL (70-110) H 05/21/19 08:00 Hemoglobin A1c % > 14.0 % (4.7-6.0) H 05/17/19 14:11 Lactic Acid 1.2 mmol/L (0.7-2.1) 05/17/19 20:00 Calcium 9.0 mg/dL (8.4-10.2) 05/21/19 05:24 Magnesium 1.7 mg/dL (1.6-2.3) 05/21/19 05:24 Total Bilirubin 0.7 mg/dL (0.2-1.3) 05/21/19 05:24 Direct Bilirubin 0.2 mg/dL (0.0-0.4) 05/21/19 05:24 Neonat Total Bilirubin Not Reportable 05/21/19 05:24 Neonat Direct Bilirubin Not Reportable 05/21/19 05:24 Neonat Indirect Bili Not Reportable 05/21/19 05:24 AST 57 U/L (17-59) 05/21/19 05:24 ALT 74 U/L (<50) 05/21/19 05:24 Alkaline Phosphatase 97 U/L (38-126) 05/21/19 05:24 Total Protein 6.0 g/dL (6.3-8.2) L 05/21/19 05:24 Albumin 3.3 g/dL (3.5-5.0) L 05/21/19 05:24 Urine Color STRAW 05/17/19 14:11 Urine Appearance CLEAR 05/17/19 14:11 Urine pH 6.0 (5.0-9.0) 05/17/19 14:11 Ur Specific [place] 1.035 05/17/19 14:11 Urine Protein 30 mg/dL (NEGATIVE) H 05/17/19 14:11 Urine Glucose (UA) >=500 mg/dL (NEGATIVE) H 05/17/19 14:11 Urine Ketones 20 mg/dL (NEGATIVE) H 05/17/19 14:11 Urine Blood NEGATIVE (NEGATIVE) 05/17/19 14:11 Urine Nitrite NEGATIVE (NEGATIVE) 05/17/19 14:11 Urine Bilirubin NEGATIVE (NEGATIVE) 05/17/19 14:11 Urine Urobilinogen NEGATIVE mg/dL (<2.0) 05/17/19 14:11 Ur Leukocyte Esterase TRACE (NEGATIVE) H 05/17/19 14:11 Urine WBC (Auto) 6 /HPF 05/17/19 14:11 Urine RBC (Auto) 4 /HPF 05/17/19 14:11 Urine Bacteria (Auto) TRACE /HPF 05/17/19 14:11 Squamous Epi Cells Auto 1 /HPF 05/17/19 14:11 Urine Mucus (Auto) RARE /LPF 05/17/19 14:11 Urine Ascorbic Acid NEGATIVE (NEGATIVE) 05/17/19 14:11 Time Trough Drawn 0244 05/19/19 02:44 Vancomycin Trough 14.7 ug/mL (5.0-20.0) 05/19/19 02:44 Anti-VERNELL 65 Antibody <5.0 U/mL (0.0-5.0) 05/17/19 20:22 Stroke Is this a Stroke Patient?: No Acute Heart Failure - Is this a Heart Failure Patient?: No
[2019-05-21 12:03] VITALS: BP 148/66
[2019-05-26 07:17] LABS: IA-2 AUTOANTIBODIES <7.5 U/mL (.)
== END 2019-05-21 13:19 | disposition home or self-care (01) ==
LOC: ER 12:35 → INTOOBSV 17:06 → EH 17:06 → 5 18:41
PROVIDERS: ADMIT Internal Medicine; ATTEND Internal Medicine
PROC: 0H9CXZZ Drainage of Left Upper Arm Skin, External Approach (ICD-10-PCS; principal; 2019-05-17)
PROC: 3E02340 Introduction of Influenza Vaccine into Muscle, Percutaneous Approach (ICD-10-PCS; 2019-05-20)
DX: L02.412 Cutaneous abscess of left axilla (principal); B95.7 Other staphylococcus as the cause of diseases classified elsewhere; E66.01 Morbid (severe) obesity due to excess calories; E11.65 Type 2 diabetes mellitus with hyperglycemia; E87.1 Hypo-osmolality and hyponatremia; Z83.3 Family history of diabetes mellitus; F17.200 Nicotine dependence, unspecified, uncomplicated; Z68.43 Body mass index [BMI] 50.0-59.9, adult; Z23 Encounter for immunization
CPT/HCPCS: 99284; 96361; 96374; 86341; 36415 ×5; 87040; 82962 ×5; 83735 ×3; 85025 ×5; 87077; 80053 ×5; 81001; 87186; 80202; 83036; 82803; 83605; 83519; 90686; 10060; G0378 ×6; J1644 ×2; J1815 ×8; J3490 ×2; J7060 ×4; J7030 ×2; J7040; J3370 ×5

== ENCOUNTER → 2020-01-07 | Outpatient (CLI) | payer OTHER ==
[2020-01-07 12:05] LABS: ABSOLUTE BASOPHILS # (AUTO) 0.1 10^3/uL (0.0-0.2); ABSOLUTE EOSINOPHILS # (AUTO) 0.1 10^3/uL (0.0-0.6); ABSOLUTE LYMPHOCYTES (AUTO) 2.5 10^3/uL (0.5-4.7); ABSOLUTE MONOCYTES (AUTO) 0.5 10^3/uL (0.1-1.4); ABSOLUTE NEUT (AUTO) 6.4 10^3/uL (1.7-8.2); BASOPHILS % (AUTO) 0.9 % (0-2); EOSINOPHILS % (AUTO) 1.5 % (0-6); HEMATOCRIT 49.4 % (37.9-51.0); HEMOGLOBIN 17.4 g/dL (13.5-17.0); LYMPHOCYTES % (AUTO) 25.8 % (13-45); MEAN CORPUSCULAR HEMOGLOBIN 32.2 pg (27.0-33.4); MEAN CORPUSCULAR HGB CONC 35.2 g/dL (32.0-36.0); MEAN CORPUSCULAR VOLUME 92 fl (80-97); MONOCYTES % (AUTO) 5.6 % (3-13); PLATELET COUNT 305 10^3/uL (150-450); RED CELL DISTRIBUTION WIDTH 13.1 % (11.5-14.0); SEGMENTED NEUTROPHILS % (AUTO) 66.2 % (42-78); TOTAL CELLS COUNTED % (AUTO) 100 %; WHITE BLOOD COUNT 9.6 10^3/uL (4.0-10.5)
[2020-01-07 12:27] LABS: ALBUMIN 4.5 g/dL (3.5-5.0); ALKALINE PHOSPHATASE 73 U/L (38-126); ANION GAP 8 (5-19); ASPARTATE AMINO TRANSFERASE 40 U/L (17-59); BLOOD UREA NITROGEN 11 mg/dL (7-20); CALCIUM 9.8 mg/dL (8.4-10.2); CARBON DIOXIDE 28 mmol/L (22-30); CHLORIDE 102 mmol/L (98-107); CHOLESTEROL 187.79 mg/dL (0-200); GLUCOSE 93 mg/dL (75-110); POTASSIUM 4.8 mmol/L (3.6-5.0); TOTAL PROTEIN 7.8 g/dL (6.3-8.2); TRIGLYCERIDES 155 mg/dL (<150)
[2020-01-07 12:38] LABS: DIRECT LDL 121 mg/dL (<100)
== END ==
LOC: CCC 11:37
PROVIDERS: ATTEND Family Medicine
DX: E11.9 Type 2 diabetes mellitus without complications (principal); I10 Essential (primary) hypertension
CPT/HCPCS: 36415; 80053; 80061; 83036; 85025

== ENCOUNTER 2020-04-05 20:27 | Emergency (ER) | payer SELFPAY ==
[2020-04-05 20:39] VITALS: BP 146/80
--- NOTE | 2020-04-05 21:02 | ER Document Report ---
HPI - HPI Patient complains to provider of: Left Ear Pain Time Seen by Provider: 04/05/20 20:50 Pain Level: 2 Context: 29-year-old male past medical history significant for diabetes and hypertension presents to the emergency room complaining of worsening left ear pain for the past 3 days. Denies any fever no trauma was swimming 2 weeks ago. Does use Q- tips in his ears. States he was seen in urgent care 2 days ago they placed him on amoxicillin which he states is not helping he is now having some drainage from the ear that is clear in color. No other medications for symptoms. States his hearing is muffled. Associated Symptoms: None Exacerbated by: Denies Relieved by: Denies Similar symptoms previously: No Recently seen / treated by doctor: Yes - Urgent care 2 days ago - ROS Systems Reviewed and Negative: Yes All other systems reviewed and negative - CONSTITUTIONAL Constitutional: DENIES: Fever, Chills - EENT EENT: REPORTS: Ear Pain - REPRODUCTIVE Reproductive: DENIES: : Past Medical History - General Information source: Patient - Social History Smoking Status: Current Every Day Smoker Chew tobacco use (# tins/day): No Frequency of alcohol use: Social Drug Abuse: None Family History: Reviewed & Not Pertinent Patient has homicidal ideation: No - Past Medical History Cardiac Medical History: Reports: Hx Hypertension Endocrine Medical History: Reports: Hx Diabetes Mellitus Type 2 Vertical Provider Document - CONSTITUTIONAL Agree With Documented VS: Yes Exam Limitations: No Limitations - INFECTION CONTROL TRAVEL OUTSIDE OF THE [place] IN LAST 30 DAYS: No - HEENT HEENT: Atraumatic, Normocephalic Notes: Left outer ear canal with erythema and swelling. Unable to visualize all landmarks. Clear drainage noted in the left outer ear canal. Right tympanic membrane is intact. Right outer ear canal without erythema or swelling. There is preauricular lymphadenopathy. Mastoid nontender bilaterally. - NECK Neck: Normal Inspection, Supple. negative: Lymphadenopathy-Left, Lymphadenopathy-Right - RESPIRATORY Respiratory: Breath Sounds Normal, No Respiratory Distress, Chest Non-Tender - CARDIOVASCULAR Cardiovascular: Regular Rate, Regular Rhythm, No Murmur - MUSCULOSKELETAL/EXTREMETIES Musculoskeletal/Extremeties: FROM - NEURO Level of Consciousness: Awake, Alert, Appropriate Motor/Sensory: No Motor Deficit, No Sensory Deficit - DERM Integumentary: Warm, Dry, No Rash Course - Re-evaluation Re-evalutation: 04/05/20 20:57 Patient is aware that I am unable to see the tympanic membrane due to the swelling of the outer ear canal. He was counseled to continue with amoxicillin. Use eardrops as prescribed. Tylenol and/or Motrin as needed for pain. Outpatient follow-up with ENT for recheck in 2 days. On-call physician was provided. Patient was given strict return to the emergency room guidelines. Return for any new or worsening symptoms. All questions were answered. Patient verbalized understanding and agrees with plan of care. - Vital Signs Vital signs: Temp Pulse Resp BP Pulse Ox 98.7 F 76 20 146/80 H 100 04/05/20 20:37 04/05/20 20:37 04/05/20 20:37 04/05/20 20:37 04/05/20 20:37 Discharge - Discharge Clinical Impression: Left otitis externa Qualifiers: Otitis externa type: unspecified type Chronicity: acute Qualified Code(s): H60.502 - Unspecified acute noninfective otitis externa, left ear Condition: Stable Disposition: HOME, SELF-CARE Instructions: Use of Ear Drops ([facility]), Otitis Externa ([facility]) Additional Instructions: Continue with the oral amoxicillin. Use the eardrops as prescribed. Tylenol and/or Motrin as needed for pain. Outpatient follow-up with ENT as discussed. Return to the emergency room for any new or worsening symptoms. Prescriptions: Ofloxacin [Floxin 0.3% Otic Drops 5 ml] 5 drop OT DAILY 7 Days #1 bottle Referrals: [facility] [Primary Care Provider] - Follow up as needed BO LADD MD [ACTIVE STAFF] - Follow up tomorrow (Call tomorrow for an outpatient follow-up appointment.)
== END 2020-04-05 21:10 | disposition home or self-care (01) ==
LOC: ER 20:27
DX: H60.502 Unspecified acute noninfective otitis externa, left ear (principal); F17.200 Nicotine dependence, unspecified, uncomplicated; I10 Essential (primary) hypertension; E11.9 Type 2 diabetes mellitus without complications
CPT/HCPCS: 99283